=== PATIENT | male | born 1975 | race Caucasian/White ===

== ENCOUNTER 2025-05-29 21:00 | Emergency (ER) | payer SELFPAY ==
[2025-05-29 21:03] VITALS: BMI 25.7
[2025-05-29 21:35] VITALS: BP 161/91; PULSE 72; RESP 18; TEMP 36.7; O2SAT 95
--- NOTE | 2025-05-29 21:39 | EDNOTE_ITS ---
ED Skin Abcess FB-RME/HPI General Chief complaint: Skin/Abscess/Foreign Body Stated complaint: BITE BY TICK TO LEFT INNER THIGH Time Seen by Provider: 05/29/25 21:17 Arrival date/time: 05/29/25 21:00 50-year-old male patient came in for evaluation regarding tick bite. [place] tick bite that was attached to the left inner thigh, according to him he has been there for at least 5 days, was able to remove it few days ago. Patient is worried and asking for tick bite prophyla xis. Was bitten in [place] while hiking. Denies any flulike symptoms denies any symptoms at this time. Related Data Allergies Allergy/AdvReac Type Severity Reaction Status Date / Time Penicillins Allergy Difficulty Verified 05/29/25 21:02 Breathing Review of Systems Review of Systems Narrative Review of Systems: Review of system reviewed and within normal limits except mentioned in HPI ED Exam Narrative Physical exam: VITAL SIGNS: Reviewed. GENERAL APPEARANCE: Alert and interactive, follows commands, no acute distress, HEAD AND FACE: Non-traumatic. ENT: PERRL, pink conjunctivitis, eyelid no trauma, Mucous membrane moist. NECK: Supple, nontender, no nuchal rigidity. RECTAL: Deferred. GENITAL: Deferred. NEUROLOGICAL: Gross motor function intact sensory function intact, Appropriate for age. MUSCULOSKELETAL: low back nontender, full range of motion. EXTREMITIES: + Tick bite area noted in the left inner thigh no swelling no redness nontender, full range of motion. SKIN: Color pink, dry, no rash, no lacerations, no abrasions, no contusions. LYMPHATICS: Deferred. Course Quality Measures none Orders Category Date Time Status Doxycycline [Vibramycin] Med 05/29/25 21:36 Once 200 mg PO X1 ONE Vital Signs Vital signs: Vital Signs Temperature 98.0 F 05/29/25 21:35 Pulse Rate 72 05/29/25 21:35 Respiratory Rate 18 05/29/25 21:35 Blood Pressure 161/91 H 05/29/25 21:35 Pulse Oximetry (%) 95 05/29/25 21:35 Oxygen Delivery Method Room Air 05/29/25 21:35 Skin / Abscess / Foreign Body MDM Narrative MDM Narrative:: 50-year-old male patient came in for evaluation regarding tick bite. [place] tick bite that was attached to the left inner thigh, according to him he has been there for at least 5 days, was able to remove it few days ago. Patient is worried and asking for tick bite prophylaxis. Was bitten in [place] while hiking. Denies any flulike symptoms denies any symptoms at this time. Patient was given doxycycline 200 mg x 1 for tick bite prophylaxis. I suggested for tetanus prophylaxis however patient refused Stable for discharge home Patient data External records reviewed:: None Clinical information provided by:: patient Social determinants that could affect healthcare access:: none Patient has the following chronic illnesses:: None How is presenting disease/condition affected by chronic disease/condition?: no chronic disease Evaluation data The following diagnostics were reviewed and interpreted by me:: other (specify) (None) Lab and/or radiology exams considered but not ordered:: None Interpretation Summary: None Medications / Prescriptions Medications or Prescriptions considered but not ordered:: None Medication administrations:: Medication Administration History Doxycycline Hyclate (Doxycycline 100 Mg Tablet) 200 mg PO X1 ONE Stop: 05/29/25 21:37 Doxycycline Consultations Consultation(s) initiated? (list below): No Diagnosis Skin/Abscess Differential Diagnosis: abscess of skin or subcutaneous tissue and cellulitis Most likely diagnosis given after review of the tests above:: Tick bite Admission Indicated Admission indicated?: not indicated Admission Request Was there a request for admission?: No Disposition Plan Disposition Plan: Discharge Discharge Attestation Discharge Attestation: The patient was given an opportunity to ask questions and understood the discharge instructions. Discharge instructions specifically effects, indications for sooner follow up or return to the emergency department, and the expected course of current diagnosis. Patient condition: Stable Discharge Plan Plan Patient Disposition: HOME (Self Care) Discharge Disposition comment: Stable Problem List Clinical Impression: Tick bite Patient/Caregiver Discharge Instructions Discharge Activity: activity as tolerated Education Materials: ED Bite Tick Abx Tx Additional Instructions: Thank you for the opportunity for serving you today. You are stable for discharged . You are advised to: Follow-up with your PCP in 1 to 2 days Return to ED for worsening of symptoms Increase oral fluids A single dose of doxycycline 200 mg x 1 is enough for tick bite prophylaxis. Print Language: [place] Stand Alone Forms: Annamarie Award Info., Patient Portal Info Letter LUIS EDUARDO/LION Supervising Physician ALBERT Supervising Physician: MD Denae
[2025-05-29] MEDS: DOXYCYCLINE 100 MG TABLET 200 MG PO (21:58)
== END 2025-05-29 22:01 | disposition home or self-care (01) ==
LOC: SERX 22:04
PROVIDERS: Emergency Provider Emergency Medicine
DX: S70.362A Insect bite (nonvenomous), left thigh, initial encounter (principal); W57.XXXA Bitten or stung by nonvenomous insect and other nonvenomous arthropods, initial encounter
CPT/HCPCS: 99281; A9270